=== PATIENT | male | born 1995 | race African-American/Black ===

== ENCOUNTER → 2023-12-01 | Outpatient (CLI) | payer OTHER ==
[~2023-12-01] MED LIST: TOPCARE IBUPRO200 MG PO
== END ==
LOC: RAD 13:23
DX: M79.644 Pain in right finger(s) (principal)

== ENCOUNTER 2024-05-13 17:51 | Emergency (ER) | payer OTHER ==
[~2024-05-13] VITALS: Ht 170.2 cm; Wt 86.4 kg
[2024-05-13] MEDS ORDERED: fentaNYL 100 MCG/2 ML VIAL IV ONE (18:30)
[2024-05-13] MEDS ORDERED: NS 1,000 ML IV SCH (18:30)
[2024-05-13] MEDS ORDERED: Ondansetron 4 MG/2 ML VIAL IV ONE (18:30)
[2024-05-13 18:37] LABS: ALBUMIN 4.8 g/dL (3.5-5.0); SODIUM 142 mmol/L (136-145)
[2024-05-13 18:38] LABS: BASO # 0.02 K/mm3 (0.02-0.10); CALCIUM 10.3 mg/dL (8.3-10.5); EOS # 0.07 K/mm3 (0.04-0.40); EOS % 1.3 % (0.0-4.0); HEMATOCRIT 47.9 % (42.0-52.0); MEAN CELL VOLUME 85 fl (78-100); MEAN CORPUSCULAR HEMOGLOBIN 28 pg (27-31); MEAN CORPUSCULAR HGB CONC 33 g/dL (33-37); MEAN PLATELET VOLUME 8.2 fl (7.4-10.4); MONO # 0.41 K/mm3 (0.20-0.80); NEU # 2.97 K/mm3 (1.40-6.50); PLATELET COUNT 258 K/mm3 (130-400); RED BLOOD COUNT 5.65 M/mm3 (4.20-5.60); RED CELL DISTRIBUTION WIDTH 11.9 % (11.5-14.5); WHITE BLOOD COUNT 5.6 K/mm3 (4.8-10.8)
[2024-05-13 18:39] LABS: GLUCOSE 94 mg/dL (75-110); TOTAL PROTEIN 8.1 g/dL (6.4-8.3)
[2024-05-13 18:41] LABS: CARBON DIOXIDE 25 mmol/L (22-29); TOTAL BILIRUBIN 0.8 mg/dL (0.2-1.2)
[2024-05-13] MEDS ORDERED: FAMOTIDINE20 MG PO (18:42)
[2024-05-13] MEDS ORDERED: METHYLPHENIDATE27 M1 PO (18:42)
[2024-05-13 18:45] LABS: AST-SGOT 25 U/L (5-34)
[2024-05-13 18:46] LABS: ALT/SGPT 38 U/L (0-55); LIPASE 30 U/L (8-78)
[2024-05-13] MEDS ORDERED: NS 100 ML IV SCH (19:06)
[2024-05-13] MEDS ORDERED: Iohexol 300 - 100 ML VIAL IV ONE (19:06)
[2024-05-13 20:46] LABS: URINE APPEARANCE SLIGHTLY CLOUDY (CLEAR); URINE COLOR YELLOW (YELLOW); URINE GLUCOSE NEGATIVE (NEGATIVE); URINE PROTEIN(semi-quant) NEGATIVE (NEGATIVE)
[2024-05-13 20:47] LABS: URINE BILIRUBIN NEGATIVE (NEGATIVE); URINE BLOOD TRACE-INTACT (NEGATIVE); URINE KETONE TRACE (NEGATIVE); URINE LEUKOCYTE ESTERASE NEGATIVE (NEGATIVE); URINE NITRATE NEGATIVE (NEGATIVE)
[2024-05-13] MEDS ORDERED: ONDANSETRON HYDR4 MG PO (21:07)
[2024-05-13 21:20] VITALS: BP 136/87
== END 2024-05-13 21:46 | disposition home or self-care (01) ==
LOC: ED 17:51
PROVIDERS: Physician Assistant
DX: R10.816 Epigastric abdominal tenderness (principal); R11.0 Nausea; R31.9 Hematuria, unspecified
CPT/HCPCS: J2405; J3010; J7030; Q9967